=== PATIENT | male | born 1935 | race Caucasian/White ===

== ENCOUNTER 2017-02-09 11:55 | Emergency (ER) | payer MEDICARE, OTHER ==
[2017-02-09 14:21] LABS: ALBUMIN 3.9 g/dL (3.4-4.8); BILIRUBIN - TOTAL 4.2 mg/dL (0.1-1.0); CREATININE 1.4 mg/dL (0.7-1.2); GLOBULIN (CALCULATION) 3.7 g/dL (2.2-4.2); POTASSIUM 3.9 mmol/L (3.5-5.1); TOTAL PROTEIN 7.6 g/dL (6.4-8.3)
[2017-02-09 14:22] LABS: LACTIC ACID 2.8 mmol/L (0.5-2.2)
[2017-02-09 15:10] LABS: BILIRUBIN 3+ mg/dL (NEGATIVE); BLOOD NEGATIVE Ery/uL (NEGATIVE); CLARITY CLEAR (CLEAR); COLOR YELLOW (YELLOW); GLUCOSE (U) NORMAL (NORMAL); KETONE (U) TRACE mg/dL (NEGATIVE); LEUKOCYTES NEGATIVE Leu/uL (NEGATIVE); NITRITE NEGATIVE (NEGATIVE); PROTEIN 1+ mg/dL (NEGATIVE)
== END 2017-02-09 19:30 | disposition other institution (70) ==
LOC: FER 11:55
PROVIDERS: Emergency Medicine
DX: N17.9 Acute kidney failure, unspecified (principal); R74.0 Nonspecific elevation of levels of transaminase and lactic acid dehydrogenase [LDH]; I10 Essential (primary) hypertension; K21.9 Gastro-esophageal reflux disease without esophagitis; Z87.891 Personal history of nicotine dependence; Z79.82 Long term (current) use of aspirin; Z79.899 Other long term (current) drug therapy
CPT/HCPCS: 36415; 71010; 80053; 81003; 83605; 84484; 87040; 87077; 87088; 87186; 87205; 93005

== ENCOUNTER 2017-05-15 07:06 | Emergency (ER) | payer MEDICARE, OTHER ==
[2017-05-15 07:36] LABS: BASOPHIL 0.2 % (0-2); EOSINOPHIL 0.7 % (0-7); HCT 33.8 % (42.0-52.0); HGB 10.6 g/dl (13.2-18.0); MCHC 31.4 g/dL (32.0-36.0); MCV 86.2 fL (78.0-100.0); MONOCYTE 6.3 % (0-12); MPV 11.9 fL (6.0-9.5); NEUTROPHIL 76.8 % (41-80); PLT 293 K/uL (150-400); RBC 3.92 M/uL (4.70-6.00); RDW 18.9 % (11.5-14.0); WBC 12.4 K/uL (4.0-10.5)
[2017-05-15 07:42] LABS: INR 1.03 (0.9-1.2); PROTHROMBIN TIME 12.6 SECONDS (11.4-13.2); PTT 31.3 SECONDS (24.3-32.1)
[2017-05-15 07:43] LABS: D-DIMER 1.69 ug/mLFEU (0.00-0.41)
[2017-05-15 07:47] LABS: ALBUMIN 2.9 g/dL (3.4-4.8); GLOBULIN (CALCULATION) 5.1 g/dL (2.2-4.2); POTASSIUM 4.8 mmol/L (3.5-5.1)
[2017-05-15 07:48] LABS: CKMB 2.64 ng/mL (0.97-4.94)
[2017-05-15 07:59] LABS: LACTIC ACID 2.7 mmol/L (0.5-2.2)
[2017-05-15 09:19] LABS: BILIRUBIN NEGATIVE (NEGATIVE); BLOOD NEGATIVE Ery/uL (NEGATIVE); CLARITY CLEAR (CLEAR); COLOR YELLOW (YELLOW); GLUCOSE (U) NORMAL (NORMAL); KETONE (U) NEGATIVE (NEGATIVE); NITRITE NEGATIVE (NEGATIVE); PROTEIN NEGATIVE (NEGATIVE); UROBILINOGEN 0.2 mg/dL (0.2-1.0)
[2017-05-15 09:20] LABS: LEUKOCYTES NEGATIVE Leu/uL (NEGATIVE)
== END 2017-05-15 15:30 | disposition other institution (70) ==
LOC: FER 07:06
PROVIDERS: Emergency Medicine
DX: J81.1 Chronic pulmonary edema (principal); R09.02 Hypoxemia; I11.0 Hypertensive heart disease with heart failure; I50.9 Heart failure, unspecified; E03.9 Hypothyroidism, unspecified; Z90.49 Acquired absence of other specified parts of digestive tract; Z96.89 Presence of other specified functional implants; Z87.891 Personal history of nicotine dependence; Z79.82 Long term (current) use of aspirin; Z79.899 Other long term (current) drug therapy; Z79.52 Long term (current) use of systemic steroids
CPT/HCPCS: 36415; 36600; 71010; 71275; 80053; 81003; 82550; 82553; 82803; 83605; 83880; 84484; 85025; 85379; 85610; 85730; 87040; 87070; 87077; 87088; 87186; 87205; 93005; 94640; J1940; J1956; J2930; Q9967